=== PATIENT | female | born 1985 | race Caucasian/White ===

== ENCOUNTER 2021-10-29 21:57 | Emergency (ER) | payer MEDICAID, OTHER ==
[~2021-10-29] VITALS: Ht 175.3 cm; Wt 54.4 kg
--- NOTE | 2021-10-29 22:22 | NUR ---
DR. BOUDREAUX AT BEDSIDE, MSE IN PROGRESS.
[2021-10-29] MEDS ORDERED: CEFTRIAXONE 500 MG VIAL IM ONE (22:45)
[2021-10-29] MEDS ORDERED: AZITHROMYCIN 250 MG TABLET PO ONE (22:45)
[2021-10-29] MEDS ORDERED: AZITHROMYCIN 250 MG TABLET ONE (22:55)
[2021-10-29] MEDS ORDERED: CEFTRIAXONE 500 MG VIAL ONE (22:55)
[2021-10-29 22:58] LABS: *BILIRUBIN,URIN NEGATIVE (NEGATIVE); *BLOOD, URINE NEGATIVE (NEGATIVE); *CLARITY,URINE CLEAR (CLEAR); *COLOR,URINE YELLOW (YELLOW); *KETONES,URINE 1+ (NEGATIVE); *UROBILINOGEN,URINE 0.2 E.U./dl (NORMAL); LEUKOCYTE ESTERASE ,URINE NEGATIVE (NEGATIVE); NITRITE, URINE NEGATIVE (NEGATIVE); PH,URINE 5.5 (5.0-8.0); UGLUCOSE NEGATIVE (NEGATIVE)
[2021-10-29 23:05] LABS: *URINE HCG, QUAL NEGATIVE (NEGATIVE); BACTERIA,URINE NONE SEEN /HPF (NONE SEEN); MUCUS,URINE MODERATE /LPF (0-FEW); RBC,URINE 0-3 /HPF (0-3); SQUAMOUS EPITHELIAL CELL,UR FEW /HPF (NONE SEEN); WBC,URINE 0-3 /HPF (0-3)
[2021-10-29 23:20] VITALS: BP 122/76
--- NOTE | 2021-10-29 23:20 | NUR ---
Patient discharged to home in stable condition. Written and verbal after care instructions given. Patient verbalizes understanding of instructions. Stressed follow up or return to ER for worsening s/s. Steady gait, denies any pain/discomfort upon discharge. Afebrile.
[2021-11-03 08:06] LABS: *GC NAA Negative (Negative)
[2021-11-03 09:07] LABS: *TRIC.VAG. NAA Negative (Negative)
== END 2021-10-29 23:20 | disposition home or self-care (01) ==
LOC: ER 22:03
DX: Z11.3 Encounter for screening for infections with a predominantly sexual mode of transmission (principal); Z72.51 High risk heterosexual behavior
CPT/HCPCS: 81001; 84703; 87491; 96372; 99283; J0696; J3490; A4663; Q0144